=== PATIENT | female | born 1955 | race Caucasian/White ===

== ENCOUNTER → 2024-04-21 07:47 | Outpatient (REF) | payer MEDICARE, SELFPAY | LOC: WDC 07:47 | PROVIDERS: ATTENDING PHYSICIAN Physician Assistant Medical | DX: Z12.31 Encounter for screening mammogram for malignant neoplasm of breast (principal) | CPT/HCPCS: 77063; 77067 ==

== ENCOUNTER → 2025-04-07 12:03 | Outpatient (REF) | payer MEDICARE, SELFPAY | LOC: WDC 12:03 | PROVIDERS: ATTENDING PHYSICIAN Physician Assistant Medical | DX: Z12.31 Encounter for screening mammogram for malignant neoplasm of breast (principal); R92.30 Dense breasts, unspecified | CPT/HCPCS: 77063; 77067 ==

== ENCOUNTER → 2025-05-24 08:59 | Outpatient (REF) | payer MEDICARE, SELFPAY | LOC: HWRAD 08:59 | PROVIDERS: ATTENDING PHYSICIAN Physician Assistant Medical | DX: M85.80 Other specified disorders of bone density and structure, unspecified site (principal); M85.89 Other specified disorders of bone density and structure, multiple sites | CPT/HCPCS: 77080 ==